=== PATIENT | female | born 1980 | race Caucasian/White ===

== ENCOUNTER 2017-09-20 09:31 | Emergency (ER) | payer MEDICAID, OTHER ==
[2017-09-20 10:19] VITALS: BP 111/70
--- NOTE | 2017-09-20 10:43 | UC ---
Back Pain HPI - HPI Summary HPI Summary: Pt c/o low back pain, generalized weakness that began on 09/17. Pt states that she is feeling "80% better" since onset of symptoms. Juan Carlos hx of kidney stones, states that she works outside daily. Thinks she may be dehydrated. Pt denies weight loss unexplained in last 6 months. - History of Current Complaint Chief Complaint: [facility]CGU Stated Complaint: BACK PAIN Time Seen by Provider: 09/20/17 10:06 Hx Obtained From: Patient Hx Last Menstrual Period: 09/17/17 ?: No Onset/Duration: Sudden Onset, Lasting Days, Resolved - imprved since onset Timing: Constant Severity Initially: Moderate Severity Currently: Mild Pain Intensity: 4 Back Pain: Is Discrete @ - low back Character: Dull, Aching Aggravating Factor(s): Nothing Alleviating Factor(s): Rest, Position Associated Signs And Symptoms: Positive: Negative - Risk Factors AAA Risk Factors: Negative TAD Risk Factors: Negative Cauda Equina Risk Factors: Negative Epidural Abscess Risk Factors: Negative - Allergies/Home Medications Allergies/Adverse Reactions: Allergies Allergy/AdvReac Type Severity Reaction Status Date / Time all year long allergy sx Allergy Congestion Uncoded 09/20/17 10:13 Home Medications: Home Medications Cetirizine* [ZyrTEC 10 MG TAB*] 10 mg PO DAILY 09/20/17 [History Confirmed 09/20] PMH/Surg Hx/FS Hx/Imm Hx Previously Healthy: Yes Other History Of: Negative For: Anticoagulant Therapy - Surgical History Surgical History: Yes Surgery Procedure, Year, and Place: 2004, abdominal as infant - Family History Known Family History: Positive: Respiratory Disease - ASTHMA - Social History Occupation: Employed Full-time Lives: With Family Alcohol Use: Occasionally Substance Use Type: None Smoking Status (MU): Heavy Every Day Tobacco Smoker Type: Cigarettes Amount Used/How Often: 1/2 PPD Length of Time of Smoking/Using Tobacco: 20 YRS Have You Smoked in the Last Year: Yes Review of Systems Constitutional: Fatigue Skin: Negative Eyes: Negative ENT: Negative Respiratory: Negative Cardiovascular: Negative Gastrointestinal: Negative Genitourinary: Negative Motor: Weakness Neurovascular: Negative Musculoskeletal: Myalgia - low back Neurological: Weakness Psychological: Negative Is Patient Immunocompromised?: No All Other Systems Reviewed And Are Negative: Yes Physical Exam Triage Information Reviewed: Yes Appearance: Well-Appearing Vital Signs: Initial Vital Signs Temp 99.8 F 09/20/17 10:14 Pulse 75 09/20/17 10:14 Resp 18 09/20/17 10:14 BP 111/70 09/20/17 10:14 Pulse Ox 99 09/20/17 10:14 Vital Signs Reviewed: Yes Eye Exam: Normal ENT Exam: Normal Dental Exam: Normal Neck exam: Normal Respiratory Exam: Normal Cardiovascular Exam: Normal Abdomen Description: Positive: CVA Tenderness (R), CVA Tenderness (L) Musculoskeletal Exam: Normal Neurological Exam: Normal Psychological Exam: Normal Skin Exam: Normal Back Pain Course/Dx - Course Course Of Treatment: I disucssed with the pt the need to establish care with a pCP . Pt verbalized understanding and agreed to plan of care. Pt stated she has been working outside in the hot weather last week and has not been drinking and eating very much. I encourage her to increased fluid and oral electrolyte replacement with sports drink. I instructed her to seek care immediately if symptoms do not improve or worsen in the next 24-48 hours. - Differential Dx/Diagnosis Differential Diagnosis/HQI/PQRI: Strain, Sprain Provider Diagnoses: low back strain. Discharge - Sign-Out/Discharge Documenting (check all that apply): Discharge/Admit/Transfer - Discharge Plan Condition: Stable Disposition: HOME Patient Education Materials: Weakness (ED), Back Pain (ED) Referrals: [facility]YS[facility]IAN REFERRAL [Outside] No Primary Care Phys,NOPCP [Primary Care Provider] - Additional Instructions: Please establish care with a PCP for routine health management. Please return to clinic as needed. - Billing Disposition and Condition Condition: STABLE Disposition: Home
== END 2017-09-20 10:53 | disposition home or self-care (01) ==
LOC: UCCORT 09:31
DX: F17.210 Nicotine dependence, cigarettes, uncomplicated (principal); S33.5XXA Sprain of ligaments of lumbar spine, initial encounter; X58.XXXA Exposure to other specified factors, initial encounter; Y93.9 Activity, unspecified; Y92.9 Unspecified place or not applicable
CPT/HCPCS: 81003; 99211; G0463

== ENCOUNTER 2018-07-23 09:30 | Emergency (ER) | payer OTHER ==
[2018-07-23 10:47] VITALS: BP 124/71
--- NOTE | 2018-07-23 11:18 | UC ---
Throat Pain/Nasal [place] HPI - HPI Summary HPI Summary: Pt presents with c/o nasal congestion, sinus pressure and pain X 1 week. Pt has hx of sinus infection and allergies. Pt c/o gradual onset of erythematous raised rash to bilateral forearms and bilateral feet. Pt states that the rash is "itchy" but does not worsen at night. - History of Current Complaint Chief Complaint: UCGeneralIllness Stated Complaint: SINUS COMPLAINT Time Seen by Provider: 07/23/18 10:38 Hx Obtained From: Patient Hx Last Menstrual Period: 07/13/18 ?: No Onset/Duration: Gradual Onset, Lasting Days, Still Present Severity: Moderate Pain Intensity: 0 Cough: None Associated Signs & Symptoms: Positive: Sinus Discomfort, Nasal Discharge Related History: Seasonal Allergies - Epiglottits Risk Factors Epiglottis Risk Factors: Negative - Allergies/Home Medications Allergies/Adverse Reactions: Allergies Allergy/AdvReac Type Severity Reaction Status Date / Time No Known Allergies Allergy Verified 07/23/18 10:47 Home Medications: Home Medications Allergy Shots 1 applic IM WEEKLY 07/23/18 [History Confirmed 07/23/18] PMH/Surg Hx/FS Hx/Imm Hx Previously Healthy: Yes Psychological History: Anxiety Other History Of: Negative For: Anticoagulant Therapy - Surgical History Surgical History: Yes Surgery Procedure, Year, and Place: 1 2004, umbilicus "Closed up" - Family History Known Family History: Positive: Respiratory Disease - ASTHMA - Social History Occupation: Employed Full-time Lives: With Family Alcohol Use: Occasionally Substance Use Type: None Smoking Status (MU): Heavy Every Day Tobacco Smoker Type: Cigarettes Amount Used/How Often: 1/2 PPD Length of Time of Smoking/Using Tobacco: since age 13 Have You Smoked in the Last Year: Yes - Immunization History Vaccination Up to Date: Yes Review of Systems All Other Systems Reviewed And Are Negative: Yes Constitutional: Positive: Negative Skin: Positive: Rash Eyes: Positive: Negative ENT: Positive: Sinus Congestion, Sinus Pain/Tenderness Respiratory: Positive: Negative Cardiovascular: Positive: Negative Gastrointestinal: Positive: Negative Genitourinary: Positive: Negative Motor: Positive: Negative Neurovascular: Positive: Negative Musculoskeletal: Positive: Negative Neurological: Positive: Negative Psychological: Positive: Negative Is Patient Immunocompromised?: No Physical Exam Triage Information Reviewed: Yes Appearance: Ill-Appearing Vital Signs: Initial Vital Signs Temp 98.1 F 07/23/18 10:37 Pulse 84 07/23/18 10:37 Resp 16 07/23/18 10:37 BP 124/71 07/23/18 10:37 Pulse Ox 100 07/23/18 10:37 Vital Signs Reviewed: Yes Eye Exam: Normal ENT: Positive: Nasal congestion, Sinus tenderness Dental Exam: Normal Neck exam: Normal Respiratory Exam: Normal Cardiovascular Exam: Normal Musculoskeletal Exam: Normal Neurological Exam: Normal Psychological Exam: Normal Skin: Positive: Rashes - two mild erythematous raised areas on bilateral anterior forearms and 5-10 erythematous raised non blanchable plantar aspect of bilateral feet Throat Pain/Nasal Course/Dx - Differential Dx/Diagnosis Differential Diagnosis/HQI/PQRI: Influenza, Sinusitis, Other - contact dermatitis Provider Diagnosis: Sinusitis, Contact dermatitis Discharge - Sign-Out/Discharge Documenting (check all that apply): Patient Departure All imaging exams completed and their final reports reviewed: No Studies - Discharge Plan Condition: Stable Disposition: HOME Prescriptions: Azithromycin TAB* [Zithromax TAB (Z-TIA) 250 mg #6 tabs] 2 tab PO .TODAY, THEN 1 DAILY #1 tia predniSONE TAB* [Deltasone 20 MG TAB*] 20 mg PO DAILY #4 tab Patient Education Materials: Contact Dermatitis (ED), Sinusitis (ED) Referrals: [facility] [place] [facility] REFERR[facility] [Outside] - If Needed Lisa Doyle MD [Medical Doctor] - If Needed No Primary Care Phys,NOPCP [Primary Care Provider] - - Billing Disposition and Condition Condition: STABLE Disposition: Home - Attestation Statements Provider Attestation: I was available for consult. This patient was seen by the YIN. The patient was not presented to, seen by, or examined by me. EK
== END 2018-07-23 11:26 | disposition home or self-care (01) ==
LOC: UCCORT 09:30
DX: J32.9 Chronic sinusitis, unspecified (principal); L25.9 Unspecified contact dermatitis, unspecified cause; F17.210 Nicotine dependence, cigarettes, uncomplicated
CPT/HCPCS: 99212; G0463